=== PATIENT | male | born 1995 | race Hispanic/Latino ===

== ENCOUNTER 2024-08-14 14:10 | Emergency (ER) | payer OTHER ==
[~2024-08-14] VITALS: Ht 175.3 cm; Wt 74.8 kg
[2024-08-14 14:46] LABS: RAPID GROUP A STREP negative (NEGATIVE)
[2024-08-14 14:56] LABS: INFLUENZA TYPE B Negative For Type B (NEGATIVE)
[2024-08-14 15:02] LABS: INFLUENZA TYPE A Positive For Type A (NEGATIVE)
[2024-08-14 15:13] LABS: SARS-CoV-2, RNA, NAAT NEGATIVE SARS CoV-2 (NEGATIVE)
[2024-08-14] MEDS ORDERED: OSEL75 PO (15:41)
--- NOTE | 2024-08-14 15:42 | ERN ---
ED Note History of Present Illness Stated Complaint: DIZZY,FEVER,CHILLS,PRESSURE IN HEAD,HEADACHES Chief Complaint: Multiple Complaints Time Seen by MD: 14:11 Time Seen by Midlevel: 14:18 Dictation: 28-year-old male coming in complaining of fever chills headache. Patient states he was at an event yesterday outside with a lot of people and noticed the symptoms after getting home from the event. Allergies: Coded Allergies: No Known Drug Allergies (Unverified Allergy, Unknown, 08/14/24) Past Medical History Past Medical History: No Pertinent History Surgical History: None Review of System Dictation Constitutional: Fever Eyes: Negative for injury, pain,redness, and discharge ENT: Negative for injury,pain or swelling Cardiovascular: Negative for chest pain, palpitations, and edema Respiratory: Negative for shortness of breath, cough, and wheezing, Abdomen/GI: Negative for abdominal pain, nausea, vomiting, diarrhea, and constipation Back: Negative for injury and pain : Negative for injury, bleeding and discharge MS/Extremity: Negative for injury and deformity Skin: Negative for rash, and discoloration Neuro: Positive for headache, no weakness, no numbness, no tingling, and no seizure Psych: Negative for suicide ideation, homicidal ideation, and hallucinations Review of Systems: was completed Initial Vital Sign VS Vital Signs Date Time Temp Pulse Resp B/P (MAP) Pulse Ox O2 Delivery O2 Flow Rate FiO2 08/14/24 14:12 99.9 103 16 147/81 95 Room Air 0 Physical Exam Dictation General: awake, alert, NAD Head/Face: Normocephalic, atraumatic Eyes: PERRL, EOMI, vision at baseline ENT: oral cavity clear, TMs clear, no signs of infection Neck: Trachea midline, supple, no nuchal rigidity Cardiovascular: RRR, normal S1/S2, No MRGs, no JVD Respiratory: CTAB, no respiratory distress, No rales or wheezes Abdomen: Soft, non-tender, non-distended, normal bowel sounds, no guarding or rebound. Skin: Warm, dry, normal turgor, no rash MS/Extremity: Pulses equal, no cyanosis, neurovascular intact, FROM Neuro: COAx4, GCS 15, strength 5/5, CN 2-12 intact, normal cerebellar exam, normal gait, Psych: Normal behavior, mood, and affect normal Results (Laboratory/Radiology) Laboratory/Radiology Laboratory Tests Test 08/14/24 14:15 Influenza Type A Antigen Positive For Type A Influenza Type B Antigen Negative For Type B SARS-CoV-2, RNA, NAAT NEGATIVE SARS CoV-2 Group A Streptococcus Rapid negative (NEGATIVE) Labs Reviewed?: Yes ED Course ED Course Orders Procedure Category Date Status Time Covid Rna Naat LAB 08/14/24 Complete 14:27 Influenza Type A & B, LAB 08/14/24 Complete Rapid 14:27 Rapid (Group A Strep) LAB 08/14/24 Complete 14:27 Acetaminophen 500mg PHA 08/14/24 Complete Tab (Tylenol 500mg T 15:05 Ketorolac PHA 08/14/24 Complete Tromethamine 15mg/Ml 15:05 Current Medications Medications (Trade) Dose Ordered Sig/Osman Route PRN Reason Start Time Stop Time Status Last Admin Dose Admin Acetaminophen (TYLenol 500MG TAB) 1,000 mg ONCE STAT PO 08/14/24 15:05 08/14/24 15:08 DC Ketorolac Tromethamine (toRADol) 15 mg ONCE STAT IM 08/14/24 15:05 08/14/24 15:08 DC Vital Signs Date Time Temp Pulse Resp B/P (MAP) Pulse Ox O2 Delivery O2 Flow Rate FiO2 08/14/24 14:12 99.9 103 16 147/81 95 Room Air 0 Medical Decision Making MDM MDM: 28-year-old male coming in complaining of fever chills headache. Patient states he was at an event yesterday outside with a lot of people and noticed the symptoms after getting home from the event. Swabs positive for influenza. Patient will be discharged on Tamiflu. Discussed findings with the patient and take [id number] for symptomatic control. Patient verbalized understanding, answered all questions. Differential diagnosis: Influenza, COVID, strep, viral syndrome Rationale: Tests considered and ordered secondary to shared decision making include: Previous outside records reviewed: Old ER visits. Risk of complication and/or morbidity or mortality of patient management: None Medications-Per medication reconciliation Need for hospitalization: Patient does not meet criteria for hospitalization. Need for emergency major/minor surgery: No There are no social concerns with this patient. Prescription drug management Prescriptions will include symptomatic care Patient's prior external medical records from other ER visits were reviewed by me as indicated. Prior testing and results from previous visits were reviewed. Prior tests were taken into account with medical decision making and resource utilization, independent historian/historians were used to obtain complete m edical history. I independently interpreted the test that were performed, results were reviewed by me and considered findings on radiology if ordered. Medical management and examination interpretation discussions were had by me with other qualified healthcare professionals as indicated for the patient's care. DX & DISP Disposition: Discharge Departure Impression: Primary Impression: Influenza Condition: Stable Scripts Oseltamivir Phosphate (Tamiflu) 75 Mg Cap 75 MG PO BID for 5 Days, #10 CAP Prov: ALANA MAZARIEGOS TELEVISION STATION MANAGER 08/14/24 Referrals: SELF,REFERRAL (PCP) Time of Disposition: 15:41 I have reviewed the case, and I agree with, Diagnosis and Plan ALANA MAZARIEGOS TELEVISION STATION MANAGER August 14, 2024 15:42
[2024-08-14 17:20] VITALS: BP 130/79; PULSE 94; RESP 18; TEMP 99.3; O2SAT 96
[2024-08-14] MEDS: ketOROlac 15MG/ML VIAL (15MG/ML) IM STA (17:23)
[2024-08-14] MEDS: acetaMINOPHEN 500 MG TABLET PO STA (17:24)
--- NOTE | 2024-08-14 17:31 | NUR ---
PT BROUGHT IN FOR ASSESSMENT/MEDS AND DISCHARGE FROM THE WAITING ROOM.
== END 2024-08-14 17:39 | disposition home or self-care (01) ==
LOC: EDH 14:10
DX: J11.1 Influenza due to unidentified influenza virus with other respiratory manifestations (principal); Z20.822 Contact with and (suspected) exposure to COVID-19
CPT/HCPCS: 99283; 87635; 87880; 87804 ×2; 96372; J1885